=== PATIENT | female | born 1955 | race Caucasian/White ===

== ENCOUNTER 2019-01-30 13:54 | Outpatient (CLI) | payer OTHER ==
--- NOTE | 2019-01-30 14:34 | ULT ---
EXAM: Left lower extremity venous ultrasound HISTORY: Left lower extremity pain and edema COMPARISON: None TECHNIQUE: Multiplanar grayscale and color Doppler images were obtained in a left lower extremity jessica ous ultrasound. Spectral analysis of the Doppler waveforms were performed. FINDINGS: The common femoral vein, profunda femoral vein, superficial femoral vein, and popliteal vei n are normal in appearance without visible thrombus. These vessels demonstrate normal compression, flow, and augmentation. The posterior tibial vein and greater saphenous vein are patent without evidence of thrombus. IMPRESSION: No evidence of DVT.
--- NOTE | 2019-01-30 14:52 | CT ---
CT Stone Protocol: 01/30/2019 12:00 AM HISTORY: Hematuria COMPARISON: 02/10/2008 TECHNIQUE: Multiple contiguous axial images were obtained and a CT of the abdomen and pelvis without IV contrast . Coronal and sagittal reformats were performed. FINDINGS: This examination is limited for the evaluation of solid organs and vascular structures due to the lac k of intravenous contrast. Lower Chest: within normal limits. Abdomen: Liver: within normal limits. Bile Ducts: Normal caliber. Gallbladder: No calcified gallstones. Normal caliber wall. Pancreas: within normal limits. Spleen: within normal limits. Adrenals: within normal limits. Kidneys: within normal limits. Pelvis: Reproductive Organs: No pelvic masses. Ureters: within normal limits. Multiple phleboliths are seen in the pelvis which appear external to t he ureters. Bladder: within normal limits. Bowel: Normal caliber. Mesenteric Lymph Nodes: No enlarged mesenteric lymph nodes. Peritoneum: No ascites or free air, no fluid collection. Vessels: Normal caliber aorta Retroperitoneum: within normal limits. Abdominal Wall: within normal limits. Bones: Degenerative changes in the spine. IMPRESSION: No evidence of acute intraabdominal or pelvic abnormality.
== END 2019-01-30 13:55 | disposition home or self-care (01) ==
LOC: SCSULT 13:54
PROVIDERS: ATTEND Family Medicine
DX: R31.0 Gross hematuria (principal); R60.0 Localized edema
CPT/HCPCS: 74176

== ENCOUNTER 2020-06-24 23:07 | Inpatient (IN) | payer MEDICARE, BC ==
[2020-06-24] MEDS ORDERED: Morphine 4 MG/ML VIAL ONE (23:54)
[2020-06-25] MEDS ORDERED: Ondansetron PF 4 MG/2 ML Vial IVP PRN (00:27)
[2020-06-25] MEDS ORDERED: Morphine 2 MG/ML VIAL SLOW IVP PRN (00:27)
[2020-06-25] MEDS ORDERED: Dextrose 50% Abboject 50 ML SYRINGE SLOW IVP PRN (00:27)
[2020-06-25] MEDS ORDERED: hydrALAZINE 20 MG/ML VIAL SLOW IVP PRN (00:27)
[2020-06-25] MEDS ORDERED: Morphine 4 MG/ML VIAL SLOW IVP PRN (00:27)
[2020-06-25] MEDS ORDERED: Dextrose 5% in Water 1,000 ML IV PRN (00:27)
[2020-06-25] MEDS ORDERED: Cyclobenzaprine 10 MG TAB PO PRN (00:34)
[2020-06-25] MEDS ORDERED: traMADol HCl 50 MG TAB PO PRN (00:34)
[2020-06-25 00:54] LABS: #Lymphocytes 1.6 thou/uL (1.20-3.40); #Monocytes 0.4 thou/uL (0.11-0.59); #Neutrophils 8.4 thou/uL (1.40-6.50); %Basophils 0.2 % (0.0-1.0); %Eosinophils 0.2 % (0.0-10.0); %Lymphocytes 15.4 % (21.0-51.0); %Monocytes 3.9 % (0.0-10.0); %Neutrophils 80.3 % (42.0-75.0); Hemoglobin 13.3 g/dL (12.0-16.0); Mean Corpuscular HGB CONC 32.7 g/dL (32.0-36.0); Mean Corpuscular Hemoglobin 29.7 pg (27.0-31.0); Mean Corpuscular Volume 90.9 fL (78.0-98.0); Mean Platelet Volume 6.7 fL (7.4-10.4); Platelet Count 255 thou/uL (130-400); RBC Distribution Width 12.3 % (11.5-14.5); Red Blood Cell (RBC) Count 4.47 mill/uL (4.20-5.40); White Blood Cell (WBC) Count 10.5 thou/uL (4.8-10.8)
[2020-06-25 01:13] LABS: Anion Gap 15 mmol/L (10-20); BUN (Urea Nitrogen) 11 mg/dL (9.8-20.1); Calc. Creatinine Clearance 0 mL/min (70-130); Calcium 9.3 mg/dL (7.8-10.44); Carbon Dioxide 24 mmol/L (23-31); Chloride 106 mmol/L (98-107); Glucose 99 mg/dL (80-115); Magnesium 1.9 mg/dL (1.6-2.6); Phosphorus 3.9 mg/dL (2.3-4.7); Potassium 4.1 mmol/L (3.5-5.1); Sodium 141 mmol/L (136-145)
[2020-06-25] MEDS: Sodium Chloride 0.9% 1,000 ML IV SCH ×4 (01:27→23:37)
[2020-06-25] MEDS: Acetaminophen 500 MG TAB PO SCH ×5 (01:27→23:45)
[2020-06-25] MEDS: traMADol HCl 50 MG TAB PO SCH ×5 (01:28→23:46)
[2020-06-25 01:55] LABS: SARS-CoV-2 NAA Rapid Test Not Detected (NotDetected)
[2020-06-25 02:09] VITALS: BMI 45.3
--- NOTE | 2020-06-25 03:42 | HP ---
REQUESTING: ER physician. CONSULTS: Orthopedic Surgery, Dr. Bolton. CHIEF COMPLAINT: Mechanical fall, left ankle pain. HISTORY OF PRESENT ILLNESS: This is a 64 year old female with past medical history of glaucoma who presented to the [facility] after a slip and fall on ice. The patient reports that her ankle inverted and she felt immediate pain. The patient was evaluated and found to have a left ankle trimalleolar fracture. The patient was placed in a posterior short ankle splint and transferred to [facility] for orthopedic evaluation. The patient denies hitting her head or loss of consciousness. The patient reports isolated injury to her left ankle. PAST MEDICAL HISTORY: Glaucoma. PAST SURGICAL HISTORY: Hysterectomy. SOCIAL HISTORY: Denies alcohol use, denies illicit drug use, denies smoking history. ALLERGIES: NO KNOWN DRUG ALLERGIES, ALTHOUGH ANESTHESIA MAKES HER NAUSEATED. CURRENT MEDICATIONS: 1. Brimonidine 2% ophthalmic. 2. Latanoprost ophthalmic. 10 point review of systems is negative unless indicated in the above HPI. OBJECTIVE: VITAL SIGNS: Blood pressure 147/75, pulse 80, respirations 18, SpO2 of 99% on room air, temperature 98.2. GENERAL: Well-appearing elderly female, awake, alert, in no distress. HEENT: Head is atraumatic normocephalic, pupils are equal bilateral, midface stable. Mucous membranes moist. NECK: No cervical spine tenderness, normal range of motion of neck, trachea midline. RESPIRATORY: Good inspiratory and expiratory effort, bilateral breath sounds clear, no wheezing, rales, or rhonchi. CARDIOVASCULAR: Regular rate, regular rhythm, no murmurs, no pedal edema. ABDOMEN: Soft, nontender, nondistended. PELVIS: Stable. EXTREMITIES: Moves all extremities, neurovascularly intact x4, left lower extremity is in a posterior splint, cap refill less than 2 seconds. NEUROLOGIC: No focal deficits. GCS 15. Strength 5/5 in all extremities. SKIN: Warm, dry, normal color. LABORATORY DATA: WBC 10.5, RBC 4.47, hemoglobin 13.3, hematocrit 40.7, platelets 255. Sodium 141, potassium 4.1, chloride 106, BUN 11, creatinine 0.75, estimated GFR 78, glucose 99, calcium 3.9, magnesium 1.9. Influenza A, B and COVID-19 not detected. DIAGNOSTICS: 1. Chest x-ray is pending. 2. Left ankle x-ray, impression left ankle fracture dislocation. 3. Left tib-fib x-ray, impression trimalleolar fracture at the ankle with ankle dislocation. ASSESSMENT: 1. Status post mechanical fall. 2. Left trimalleolar ankle fracture. 3. Acute traumatic pain secondary to above. 4. History of glaucoma. PLAN: Admit to the surgical floor. Pain control. N.p.o. with maintenance IV fluids, normal saline at 120 an hour. Orthopedic Surgery plans to take the patient to the OR in the morning for repair. PT and OT to evaluate and treat postop. The plan was discussed with the patient who agrees. The plan will be discussed with the attending after this dictation. Job ID: [id number] MTDD
[2020-06-25] MEDS ORDERED: Bupivacaine PF 0.5% 30 ML VIAL ONE (06:52)
[2020-06-25] MEDS ORDERED: Fentanyl 100 MCG/2 ML VIAL ONE ×2 (06:59→07:09)
[2020-06-25] MEDS ORDERED: Famotidine/PF 20 mg/2ml Vial ONE (06:59)
[2020-06-25] MEDS ORDERED: Midazolam HCl 2 mg/2 ml Vial ONE (07:09)
[2020-06-25] MEDS ORDERED: Lidocaine 1% (PF) 30 ML VIAL ONE (07:10)
--- NOTE | 2020-06-25 07:40 | RAD ---
EXAM: Single view of the chest HISTORY: Preop radiograph for fractured ankle COMPARISON: None FINDINGS: Single view of the chest shows a normal sized cardiomediastinal silhouette. There is no alison dence of consolidation, mass, or pleural effusion. Degenerative changes are seen in the spine. IMPRESSION: No evidence of acute cardiopulmonary disease
[2020-06-25] MEDS: Polyethylene Glycol 3350 17 GM Packet PO SCH (07:59)
[2020-06-25] MEDS: Famotidine 20 MG TAB PO SCH ×2 (07:59→21:17)
[2020-06-25] MEDS: Senokot S 8.6-50 MG TAB PO SCH ×2 (07:59→21:17)
--- NOTE | 2020-06-25 08:06 | CON ---
DATE OF CONSULTATION: 06/25/2020 REQUESTING PHYSICIAN: Pramod Morelos MD. BRIEF HISTORY OF PRESENT ILLNESS: Laura is a 64-year-old lady who slipped on ice and sustained a twisting injury to her left ankle with immediate pain and deformity. She was seen and evaluated at the [place] [facility] where x-rays demonstrated a fracture dislocation. An attempt was made at closed reduction of the dislocated portion of this injury, however, this proved to be unsuccessful with continued subluxation of the talus from underneath the distal tibia. As such, the patient was placed in a splint and now transferred to [facility] for care. The patient admitted to the Trauma Service per protocol with orthopedic consultation requested. PAST MEDICAL HISTORY: Remarkable for glaucoma. PAST SURGICAL HISTORY: Hysterectomy. MEDICATIONS: Include drops for her glaucoma. ALLERGIES: NONE KNOWN. FAMILY HISTORY: Noncontributory for this fracture. SOCIAL HISTORY: She denies drug, smoking, or alcohol use. REVIEW OF SYSTEMS: No recent fevers, chills, or sweats. No recent chest pain, cough, or shortness of breath. No numbness, tingling, or history of weakness in her extremities. PHYSICAL EXAMINATION: VITAL SIGNS: Temperature 98.4, heart rate of 55, respiratory rate of 16, blood pressure of 113/71. GENERAL: The patient is examined in the day stay area at [facility] in [place]. HEENT: Atraumatic, normocephalic. HEART: Regular rate and rhythm without murmur. LUNGS: Clear to auscultation bilaterally with good breath sounds. Chest wall is nontender. ABDOMEN: Round, soft, and nontender with normal bowel sounds. PELVIS: Stable and nontender with compression. EXTREMITIES: Remarkable for a left lower extremity which is in a fiberglass splint. She is able to wiggle her toes. She has intact subjective sensation to light touch over the dorsal and plantar surfaces of the toes. She does not have an extreme increase in pain with passive stretch of the toes. LABORATORY DATA: She has a white count of 10.5, hematocrit of 40.7, and 255,000 platelets. X-RAYS: 3-view left ankle x-ray from [place] is remarkable for a left ankle fracture dislocation with trimalleolar fracture and lateral subluxation and displacement of the talus from underneath the tibia. Left tib-fib x-ray also obtained which shows the same. ASSESSMENT: A 64-year-old lady, status post ground-level fall sustaining left trimalleolar ankle fracture dislocation with incomplete reduction. PLAN: At this time, the patient has been admitted to the Trauma Service. She is currently n.p.o. The plan at this time is to take her to the operating room for assessment of swelling and condition of her skin. If she is not felt to be a candidate for acute open reduction internal fixation, we will proceed with application of an external fixator to reduce and stabilize the ankle while the soft tissue component recovers from this injury. This morning, I discussed with the patient risks and benefits of the procedure. Risks include, but are not limited to bleeding, infection, nerve injury, DVT, PE, ankle stiffness, ankle pain, loss of limb or life. The patient appears to understand and does wish to proceed. Written consent will be obtained prior to surgery. Job ID: [id number]
[2020-06-25] MEDS ORDERED: Famotidine 20 MG TAB PO SCH (09:00)
[2020-06-25] MEDS ORDERED: Ondansetron HCl/PF 4 MG/2 ML Vial IVP PRN (09:07)
[2020-06-25] MEDS ORDERED: Promethazine HCl 25 MG/ML VIAL SLOW IVP PRN (09:07)
[2020-06-25] MEDS ORDERED: Promethazine HCl 25 MG/ML VIAL IM PRN (09:07)
--- NOTE | 2020-06-25 09:15 | RAD ---
EXAM: 2 views of the left ankle HISTORY: Fracture dislocation of the left ankle COMPARISON: 06/24/2020 FINDINGS: 2 limited intraoperative fluoroscopic views of the left ankle shows the patient is status p ost ORIF of the lateral malleolus with a plate and screws and of the medial malleolus with 2 screws. There is better alignment of the ankle mortise. IMPRESSION: Status post ORIF of left ankle fracture dislocation
--- NOTE | 2020-06-25 14:01 | OP ---
DATE OF PROCEDURE: 06/25/2020 PREOPERATIVE DIAGNOSIS: Left trimalleolar ankle fracture dislocation. POSTOPERATIVE DIAGNOSIS: Left trimalleolar ankle fracture dislocation. PROCEDURE PERFORMED: Open reduction and internal fixation of left trimalleolar ankle fracture dislocation. ANESTHESIA: General. YARDER OPERATOR: Octavia Gould PA-C. TOURNIQUET TIME: 51 minutes at 300 mmHg. IMPLANTS: Synthes System was used with a 7-hole 1/3 tubular plate for the distal fibula. COMPLICATIONS: None. DRAINS: None. SPECIMEN: None. OUTCOME: Satisfactory. INDICATIONS FOR PROCEDURE: The patient is a 64-year-old lady, status post ground level fall, sustaining a left ankle fracture dislocation. An apparent attempt was made at closed reduction in the emergency room at [facility]; however, this proved to be unsuccessful with continued significant subluxation laterally of the talus from underneath the dome of the tibia. As such, the patient was then transferred to [facility] and now taken to the operating room for at least a closed reduction and if skin condition allows, open reduction and internal fixation. Informed consent has been obtained I believe all questions have been answered. DESCRIPTION OF PROCEDURE: The patient was brought to the operating room and a time-out performed followed by induction of general anesthesia. The patient was found to have skin that was intact and there was not felt to be excessive tension on the skin and as such, it was opted to proceed with definitive open reduction and internal fixation. Following the sterile prep and drape, the limb was exsanguinated with Esmarch bandage, tourniquet inflated to 300 mmHg. Next, a vertical incision was made over the lateral malleolus. After skin was sharply incised, dissection was carried down bluntly exposing the fractured lateral malleolus. My child nutrition assistant provided retraction of soft tissue at this point in the case. Minimal subperiosteal dissection performed and then the fracture was reduced and held in place with a bone tenaculums by my child nutrition assistant while I proceeded with inner fragmentary screw stabilization of the fragments. This was done with 2 [id number] cortical screws in standard fashion. While my child nutrition assistant continued to maintain reduction of the fracture, a 7-hole 1/3 tubular plate was then contoured to fit the lateral cortex of the distal fibula and this held in place with cortical screws proximally and cancellous screws distally. At the completion of the stabilization procedure, AP mortise, and lateral x-rays were obtained that showed near-anatomic alignment of the posterior malleolus and near anatomic alignment of the medial malleolus as well. As such, percutaneous screw stabilization of the medial malleolus was then performed. While my child nutrition assistant stabilized the leg, two drill holes were placed from the tip of the medial malleolus up across the fracture into the distal tibial metaphysis. This followed by placement of partially-threaded cancellous screws. With completion of this, final AP, mortise, and lateral x-rays were obtained. The lateral incision was then irrigated thoroughly and then my child nutrition assistant provided wound closure with 0 Vicryl deep followed by 2-0 Vicryl and then nylon for the skin. The two small stab wounds medially were closed with nylon suture. At the completion of this, Xeroform gauze, Webril, and fiberglass splint were applied to the ankle. Tourniquet was let down and then the patient was transferred to recovery room in stable condition. There were no complications. The patient tolerated the procedure well. Job ID: [id number]
--- NOTE | 2020-06-25 14:36 | PRG ---
DATE OF SERVICE: 06/25/2020 SUBJECTIVE: A 64-year-old female patient, who slipped and fell on ice, brought into the emergency department. POD 0 ORIF left trimalleolar ankle fracture and dislocation. The patient is recovering The patient is started on oral pain medications and diet. OBJECTIVE: VITAL SIGNS: Temp 97.4, pulse 77, respiratory rate 18, O2 96, blood pressure 111/65. GENERAL: Lying in bed in no acute distress. CARDIAC: Regular rate and rhythm. LUNGS: No accessory muscle use. Equal chest rise and fall. ABDOMEN: Soft, nontender. MSK: Sensation intact. Moving all extremities. Leg in a straight leg splint. ASSESSMENT: 1. Status post mechanical fall. 2. Left trimalleolar ankle fracture, status postop. 3. Acute traumatic pain secondary to above. 4. History of glaucoma. PLAN: The patient is recovering well on the surgical floor, status post left trimalleolar ankle fracture repair. 1 Start the patient on regular diet and IV fluids. 2.Discontinue Anglin 3.PT, OT in the morning. Dispo patient will need acute rehab, patient is improving with PT. Discuss [facility] patient has [employer]BS. Job ID: [id number] [email or web address]
[2020-06-25] MEDS ORDERED: PROPOFOL 200 MG/20 ML VIAL ONE (14:57)
[2020-06-25] MEDS ORDERED: Ondansetron PF 4 MG/2 ML Vial ONE (14:57)
[2020-06-25] MEDS ORDERED: PHENYLEPHRINE-NS 100 MCG/ML 10 ML SYRINGE ONE (14:57)
[2020-06-25] MEDS ORDERED: Bupivacaine HCl 0.5%/Epinephrine 1:200,000/PF 30 ml Vial ONE (14:57)
[2020-06-25] MEDS ORDERED: Rocuronium Bromide 10 MG/ML (10ML VIAL) ONE (14:57)
[2020-06-25] MEDS ORDERED: Lidocaine 1% PF 5 ML VIAL ONE (14:57)
[2020-06-25] MEDS ORDERED: Ketorolac Tromethamine 30 MG/ML VIAL ONE (14:57)
[2020-06-25] MEDS ORDERED: Metoclopramide HCl 10 MG/2 ML VIAL ONE (14:57)
[2020-06-25] MEDS ORDERED: Glycopyrrolate 0.2 MG/ML 5 ML SYRINGE ONE (14:57)
[2020-06-25] MEDS: CEFAZOLIN 2 GM in Premix Bag 1 BAG IVPB SCH ×2 (15:06→23:37)
[2020-06-26] MEDS: traMADol HCl 50 MG TAB PO SCH ×3 (06:22→17:48)
[2020-06-26] MEDS: Acetaminophen 500 MG TAB PO SCH ×3 (06:22→17:48)
[2020-06-26] MEDS: Multivitamin W/ Minerals 1 TAB PO SCH (08:27)
[2020-06-26] MEDS: Senokot S 8.6-50 MG TAB PO SCH ×2 (08:27→20:26)
[2020-06-26] MEDS: Famotidine 20 MG TAB PO SCH (08:27)
[2020-06-26] MEDS: CEFAZOLIN 2 GM in Premix Bag 1 BAG IVPB SCH (08:27)
[2020-06-26] MEDS: Polyethylene Glycol 3350 17 GM Packet PO SCH (08:28)
[2020-06-26] MEDS: Stress 600 With Zinc 1 TAB PO SCH (10:38)
--- NOTE | 2020-06-26 18:08 | PRG ---
DATE OF SERVICE: 06/26/2020 SUBJECTIVE: Laura is postop day 1 from left trimalleolar ankle open reduction and internal fixation. Her pain is much better and she is tolerating well. She is alert, responsive, and appropriate. Vital signs stable. Neurovascularly intact in the left foot with full digital excursion. IMPRESSION: A 64-year-old female postop day 1 left ankle open reduction and internal fixation, doing well. PLAN: Continue current care. Discharge disposition will be rehabilitation per Trauma Team. Job ID: [id number]
[2020-06-27] MEDS: traMADol HCl 50 MG TAB PO SCH ×4 (00:21→17:52)
[2020-06-27] MEDS: Acetaminophen 500 MG TAB PO SCH ×4 (00:22→17:51)
[2020-06-27] MEDS: Enoxaparin Sodium 30 MG/0.3 ML SYRINGE SC SCH ×2 (08:30→20:44)
[2020-06-27] MEDS: Stress 600 With Zinc 1 TAB PO SCH (08:30)
[2020-06-27] MEDS: Multivitamin W/ Minerals 1 TAB PO SCH (08:30)
[2020-06-27] MEDS: Senokot S 8.6-50 MG TAB PO SCH ×2 (08:30→20:44)
[2020-06-27] MEDS: Polyethylene Glycol 3350 17 GM Packet PO SCH (08:30)
[2020-06-28] MEDS: Acetaminophen 500 MG TAB PO SCH ×5 (00:35→23:53)
[2020-06-28] MEDS: traMADol HCl 50 MG TAB PO SCH ×5 (00:36→23:54)
--- NOTE | 2020-06-28 06:39 | PRG ---
DATE OF SERVICE: 06/28/2020 SUBJECTIVE: This is a 64-year-old female patient, evening rounds, resting comfortably in bed. POD3 left post open reduction and internal fixation, left trimalleolar ankle fracture dislocation. Pain is well controlled. Tolerating regular diet. Temperature 98, pulse 71, respiratory rate 18, and O2 saturation 96%. General no acute distress resting comfortably. Actively moving lower extremities. Repeat labs in the morning, last labs done we pre-op labs. Continue home medication Continue PT/OT and DVT ppx. Job ID: [id number] [facility]
[2020-06-28] MEDS: Enoxaparin Sodium 30 MG/0.3 ML SYRINGE SC SCH ×2 (08:47→20:39)
[2020-06-28] MEDS: Polyethylene Glycol 3350 17 GM Packet PO SCH (08:47)
[2020-06-28] MEDS: Stress 600 With Zinc 1 TAB PO SCH (08:47)
[2020-06-28] MEDS: Senokot S 8.6-50 MG TAB PO SCH ×2 (08:47→20:39)
[2020-06-28] MEDS: Multivitamin W/ Minerals 1 TAB PO SCH (08:47)
--- NOTE | 2020-06-28 13:42 | PRG ---
DATE OF SERVICE: 06/28/2020 SUBJECTIVE: The patient is hospital day #4, postop day #3, status post ground-level fall, in which she sustained a left trimalleolar fracture, in she underwent open reduction and internal fixation of same. The patient is doing well, though she is slow to progress with therapy and she is open to exploring placement options. We have asked Case Management to assess her. Otherwise, she is doing well. Her pain is controlled. She is tolerating a diet. OBJECTIVE: VITAL SIGNS: Temperature is 98.0, heart rate 75, blood pressure 115/74, respirations 18, oxygen saturation 92% on room air. GENERAL: The patient is resting comfortably in bed. She is awake, alert, conversant, and appropriate. [place] Coma Scale is 15. HEENT: Unremarkable. RESPIRATIONS: Nonlabored with equal rise and fall of the chest. ABDOMEN: Nondistended. EXTREMITIES: Neurovascularly intact x4. LABORATORY DATA: There are no labs or radiographs reviewed this morning. ASSESSMENT AND PLAN: 1. Status post ground-level fall. 2. Left trimalleolar fracture, status post open reduction and internal fixation of same. PLAN: Plan will be to continue supportive care, encourage physical and occupational therapy, and await final placement decision. The patient was discussed with Dr. Melendez during rounds this morning. Job ID: [id number]
[2020-06-28] MEDS ORDERED: Famotidine 20 MG TAB PO SCH (23:30)
--- NOTE | 2020-06-29 04:02 | PRG ---
DATE OF SERVICE: 06/28/2020 64-year-old female patient, hospital day #4. Postop day #3 following ORIF of left trimalleolar ankle fracture. The patient is seen at bedside this evening, complaining of gastric reflux. Famotidine was discontinued during the day. The patient is doing well. No complaints. Pain is well controlled. The patient tolerated a diet. Vitals: Temperature is 97.9, pulse 74, respiratory rate 16, O2 saturation 94% on room air, blood pressure 113/71. The patient is working with PT. The patient stood by end of bed for two times for 30 seconds each. PT recommends rehab. PLAN: Continue to encourage the increase fluid intake . Work with PT, OT. Disposition pending transfer to rehab facility. Job ID: [id number] MTDD
[2020-06-29 06:14] LABS: #Eosinphils 0.5 thou/uL (0.0-0.7); #Monocytes 0.5 thou/uL (0.11-0.59); #Neutrophils 3.7 thou/uL (1.40-6.50); %Basophils 0.5 % (0.0-1.0); %Eosinophils 7.7 % (0.0-10.0); %Lymphocytes 29.6 % (21.0-51.0); %Monocytes 7.2 % (0.0-10.0); %Neutrophils 55.1 % (42.0-75.0); Hemoglobin 11.6 g/dL (12.0-16.0); Mean Corpuscular Hemoglobin 29.5 pg (27.0-31.0); Mean Corpuscular Volume 89.3 fL (78.0-98.0); Mean Platelet Volume 6.3 fL (7.4-10.4); Platelet Count 264 thou/uL (130-400); RBC Distribution Width 12.4 % (11.5-14.5); Red Blood Cell (RBC) Count 3.94 mill/uL (4.20-5.40); White Blood Cell (WBC) Count 6.7 thou/uL (4.8-10.8)
[2020-06-29] MEDS: Acetaminophen 500 MG TAB PO SCH ×4 (06:27→23:44)
[2020-06-29] MEDS: traMADol HCl 50 MG TAB PO SCH ×4 (06:28→23:44)
[2020-06-29 06:49] LABS: Anion Gap 12 mmol/L (10-20); BUN (Urea Nitrogen) 9 mg/dL (9.8-20.1); Calc. Creatinine Clearance 146 mL/min (70-130); Calcium 8.9 mg/dL (7.8-10.44); Carbon Dioxide 28 mmol/L (23-31); Chloride 104 mmol/L (98-107); Glucose 92 mg/dL (80-115); Magnesium 1.9 mg/dL (1.6-2.6); Phosphorus 3.7 mg/dL (2.3-4.7); Potassium 4.1 mmol/L (3.5-5.1); Sodium 140 mmol/L (136-145)
[2020-06-29] MEDS: Famotidine 20 MG TAB PO SCH ×2 (10:28→19:35)
[2020-06-29] MEDS: Senokot S 8.6-50 MG TAB PO SCH ×2 (10:28→19:34)
[2020-06-29] MEDS: Enoxaparin Sodium 30 MG/0.3 ML SYRINGE SC SCH ×2 (10:28→19:34)
[2020-06-29] MEDS: Multivitamin W/ Minerals 1 TAB PO SCH (10:29)
[2020-06-29] MEDS: Polyethylene Glycol 3350 17 GM Packet PO SCH (10:29)
[2020-06-29] MEDS ORDERED: Hydrocortisone Sod Succ/PF 100 mg/2 ml Vial IVP SCH (10:30)
[2020-06-29] MEDS: Stress 600 With Zinc 1 TAB PO SCH (11:58)
[2020-06-29] MEDS ORDERED: Hydrocortisone 10 mg Tablet PO SCH (21:00)
--- NOTE | 2020-06-30 00:56 | PRG ---
DATE OF SERVICE: 06/29/2020 SUBJECTIVE: Ms. Hernandez is a 64-year-old female who is hospital day #5, postop day #4, status post ground level fall, sustained left trimalleolar ankle fracture. Currently awaiting placement for rehab. Cortisol level showed mild adrenal suppression. She does not have an IV, therefore she has been started on 5 mg of prednisone. She states her pain is generally controlled. She did finally have a bowel movement and feels okay. She is working with PT and OT, however, not walking too far. OBJECTIVE: VITAL SIGNS: Temperature is 97.9, blood pressure is 117/76, heart rate is 71, breathing 16 times per minute, 98% on room air. GENERAL: A 64-year-old female sitting up, no acute distress. HEENT: Normocephalic. RESPIRATORY: Equal rise and fall. No respiratory distress. CARDIOVASCULAR: She has strong pulses. ABDOMEN: Large, soft, nontender. NEUROLOGIC: GCS is 15. SKIN: Warm and dry. EXTREMITIES: She does have a splint noted to the left lower extremity. She has good sensation distal to this. LABORATORY DATA: Today, white blood cell count is 6.7, platelets 264, hemoglobin and hematocrit is 11.6 and 35.1 respectively. Sodium is 140, potassium 4.1, chloride is 104, CO2 is 28, BUN 9, creatinine 0.68, glucose is 92, phos is 3.7, mag of 1.9. Cortisol is 9.6 on a random test drawn at 12:08 p.m. ASSESSMENT: 1. Ground level fall. 2. Left trimalleolar fracture. 3. Mild hypotension, could be adrenally suppressed. PLAN: 1. We will provide prednisone . 2. Would like to be at [facility]. 3. Continue all supportive care including PT/OT. 4. Updated the patient and the patient's daughter at bedside. Job ID: [id number]
[2020-06-30] MEDS: Acetaminophen 500 MG TAB PO SCH ×3 (06:01→17:55)
[2020-06-30] MEDS: traMADol HCl 50 MG TAB PO SCH ×3 (06:01→17:56)
[2020-06-30] MEDS: Enoxaparin Sodium 30 MG/0.3 ML SYRINGE SC SCH ×2 (08:35→21:02)
[2020-06-30] MEDS: predniSONE 5 MG TAB PO SCH (08:35)
[2020-06-30] MEDS: Famotidine 20 MG TAB PO SCH ×2 (08:35→21:02)
[2020-06-30] MEDS: Multivitamin W/ Minerals 1 TAB PO SCH (08:35)
[2020-06-30] MEDS: Polyethylene Glycol 3350 17 GM Packet PO SCH (08:36)
[2020-06-30] MEDS: Senokot S 8.6-50 MG TAB PO SCH ×2 (08:41→21:02)
--- NOTE | 2020-06-30 11:30 | PRG ---
DATE OF SERVICE: 06/30/2020 SUBJECTIVE: Laura is a 64-year-old female, postop day 5 from a left ankle open reduction and internal fixation. She is doing well. She has still continued to improve her pain. She is able to ambulate 5 feet at a time in a nonweightbearing fashion. She is awaiting placement for inpatient rehabilitation. OBJECTIVE: VITAL SIGNS: Temperature 98.2, pulse 72, respiratory rate 16, blood pressure 108/69. GENERAL: She is alert and oriented to person, place, time, and situation. Responsive and appropriate and pleasant with examiner. EXTREMITIES: Incisions, there is no strike through. Posterior splint is intact. Neurovascularly intact in digits with full digital excursion. LABORATORY DATA: Hemoglobin and hematocrit 11.6 and 35.1. IMPRESSION: A 64-year-old female postop day 5, left ankle open trimalleolar fracture, treated with open reduction and internal fixation. PLAN: Continue current care. Recheck tomorrow. Disposition per Trauma Team. Job ID: [id number]
[2020-06-30] MEDS: Stress 600 With Zinc 1 TAB PO SCH (12:43)
--- NOTE | 2020-06-30 13:39 | PRG ---
DATE OF SERVICE: 06/30/2020 SUBJECTIVE: A 64-year-old female, hospital day #5, status post ORIF of left ankle trimalleolar fracture, doing well. Walking some with PT. She is having bowel movements. She is getting about 1000 on her IS. She got her eyedrops yesterday and feels better. Pain is generally controlled, sitting up and eating. OBJECTIVE: VITAL SIGNS: Temperature is 98.2, blood pressure is 108/69, heart rate is 72, respiratory rate is 16. She is 90% on room air, will go up to 92%, 93% with deep breathing. LABORATORY DATA: We have a cortisol of 9.60 from yesterday. ASSESSMENT: 1. Ground level fall. 2. Left trimalleolar fracture. 3. Adrenal suppression, improving. PLAN: 1. Had to change from hydrocortisone to prednisone low dose, will do three days and re-evaluate. 2. Waiting on insurance from [facility]. 3. Continue PT/OT. 4. Encourage IS and moving as much as she could. Verbalized understanding the same. 5. Answered all questions. The patient at bedside. Job ID: [id number]
[2020-07-01] MEDS: Acetaminophen 500 MG TAB PO SCH ×4 (00:39→17:43)
[2020-07-01] MEDS: traMADol HCl 50 MG TAB PO SCH ×4 (00:40→17:43)
[2020-07-01] MEDS: Stress 600 With Zinc 1 TAB PO SCH (08:49)
[2020-07-01] MEDS: Polyethylene Glycol 3350 17 GM Packet PO SCH (08:49)
[2020-07-01] MEDS: Enoxaparin Sodium 30 MG/0.3 ML SYRINGE SC SCH (08:50)
[2020-07-01] MEDS: predniSONE 5 MG TAB PO SCH (08:50)
[2020-07-01] MEDS: Famotidine 20 MG TAB PO SCH (08:50)
[2020-07-01] MEDS: Multivitamin W/ Minerals 1 TAB PO SCH (08:50)
[2020-07-01] MEDS: Senokot S 8.6-50 MG TAB PO SCH (08:50)
--- NOTE | 2020-07-01 14:46 | PRG ---
DATE OF SERVICE: 07/01/2020 RESIDENT: Hemalatha Oconnor MD This patient was discussed and evaluated with Dr. Melendez, who agrees with the plan as stated below. SUBJECTIVE: This is a 64-year-old female who is hospital day #6 S/P ORIF of left ankle trimalleolar fracture. She is in good spirits this morning and is interested in leaving the hospital. She has been ambulating well with physical therapy, but has yet to practice stairs and has to go through 6 steps to get into her house. On evaluation, she is in her recliner with her left leg wrapped, in no distress or pain. She has continued to have bowel movements and is voiding well. She is tolerating her diet well. OBJECTIVE: VITAL SIGNS: Temperature 97.7 Fahrenheit, pulse 74, respirations 16, oxygen saturation 94% on room air, blood pressure 122/58. LABORATORY DATA: No labs have been collected since 06/29. ASSESSMENT: 1. Ground level fall. 2. Left trimalleolar fracture, status post open reduction and internal fixation. 3. Adrenal suppression, improving. PLAN: 1. On 06/30, the patient was changed from hydrocortisone to low level prednisone for 3 days with a plan to re-evaluate at that time. Today is day 2 of that, so we will re-evaluate her adrenal suppression in the next day or two. 2. She is pending placement at [facility], unless her work with physical therapy is significant enough that she feels comfortable going home. 3. Continue PT/OT, encourage incentive spirometer and frequent ambulation. The patient voiced understanding and had no questions at this time. Job ID: [id number] [facility]
[2020-07-01 15:41] VITALS: BP 132/80; TEMP 98
--- NOTE | 2020-07-03 05:12 | PQF ---
CLINICAL DOCUMENTATION CLARIFICATION FORM: Dear : Leo Melendez Date / Time: 07/03/2020 0511 Please exercise your independent, professional judgment in responding to the clarification form. Clinical indicators are provided on the bottom of this form for your review Please check appropriate box(es): BMI > 40 with associated diagnosis of: (check one) [ x ] Morbid (Severe) Obesity [ ] Overweight [ ] Obesity [ ] Other diagnosis, please specify [ ] Unable to determine Physician Signature: Date/Time: For continuity of documentation, please document condition throughout progress notes and discharge summary. Thank You. To be completed by CDI/Coding staff for physician review: Present Clinical Indicators - Signs / Symptoms / Labs Results and Location in Medical Record [x] BMI of: 45.4 Assessment 06/25 [x] BP 125/56, Pulse 64, Resp 20, Temp 98.2 Vital signs 06/25 [x] Well-appearing elderly H&P p1 06/25 P[facility] [employer] [x] s/p slipped and fall o ice H&P p1 06/25 Ponzio [employer] [x] Gait abnormality and decreased functional mobility PN 06/25 PT Assessment [x] PMHX: morbid obesity PN 06/25 PT Assessment [x] Presently she is observed with decreased functional mobility, safety, activity tolerance, ADL participation PN 06/27 OT Assessment Present Risk Factors Results and Location in Medical Record [x] 64 year-old Female H&P p1 06/25 Ponzio [employer] Present Treatments Results and Location in Medical Record [x] IVF NS 1L MAR 06/25 [x] On regular diet Order 06/26 CDS/Reimbursement Consultant Signature: Haven Yang Phone #: [phone] Date/Time: 07/03/20 0511 Source: [facility] This is a permanent part of the Medical Record [facility]
== END 2020-07-01 19:52 | disposition swing bed (61) | DRG 493 ==
LOC: ERS 23:07 → SURG A 06-25 00:13
PROVIDERS: ADMIT Surgery; ATTEND Surgery
PROC: 0QSK04Z Reposition Left Fibula with Internal Fixation Device, Open Approach (ICD-10-PCS; principal; 2020-06-25)
PROC: 0QSH04Z Reposition Left Tibia with Internal Fixation Device, Open Approach (ICD-10-PCS; 2020-06-25)
DX: S82.852A Displaced trimalleolar fracture of left lower leg, initial encounter for closed fracture (principal); Z68.42 Body mass index [BMI] 45.0-49.9, adult; Z20.822 Contact with and (suspected) exposure to COVID-19; H40.9 Unspecified glaucoma; W00.0XXA Fall on same level due to ice and snow, initial encounter; K21.9 Gastro-esophageal reflux disease without esophagitis; I95.9 Hypotension, unspecified; Z90.710 Acquired absence of both cervix and uterus; Z79.899 Other long term (current) drug therapy; E66.01 Morbid (severe) obesity due to excess calories
CPT/HCPCS: 0240U; 36415; 71045; 76000; 80048; 82533; 83735; 84100; 85025; 93005; 96374; C1713; J0690; J1650; J1885; J2001; J2250; J2270; J2405; J2704; J2765; J3010; J7512; S0020; S0028

== ENCOUNTER 2020-10-09 09:15 | Outpatient (CLI) | payer BC, MEDICARE | END 2020-10-09 09:16 | disposition home or self-care (01) | LOC: BICMAMMO 09:15 | PROVIDERS: ATTEND Family Medicine | DX: Z12.31 Encounter for screening mammogram for malignant neoplasm of breast (principal); N95.9 Unspecified menopausal and perimenopausal disorder; M85.852 Other specified disorders of bone density and structure, left thigh; M85.851 Other specified disorders of bone density and structure, right thigh | CPT/HCPCS: 77063; 77067; 77080 ==

== ENCOUNTER 2023-02-25 14:48 | Outpatient (CLI) | payer MEDICARE | END 2023-02-25 14:49 | disposition home or self-care (01) | LOC: BICMAMMO 14:48 | PROVIDERS: ATTEND Family Medicine | DX: Z12.31 Encounter for screening mammogram for malignant neoplasm of breast (principal) | CPT/HCPCS: 77063; 77067 ==